=== PATIENT | female | born 1980 | race Caucasian/White ===

== ENCOUNTER 2023-06-14 20:13 | Emergency (ER) | payer OTHER, SELFPAY ==
--- NOTE | ~2023-06-14 | XR_ITS ---
EXAM: XR knee LT 3V DATE: 06/14/2023 20:52 HISTORY: accidental fall with knee pain . COMPARISON: None available. FINDINGS: Normal mineralization. Suggestion of cortical irregularity with adjacent linear lucency se en in the anterolateral aspect of the lateral condyle in the lateral view only. Also noted in the lat eral view is a small possible osteochondral fragment projecting over the medial femoral condyle. Curv ilinear bone fragment adjacent to the lateral tibial plateau as can be seen with lateral capsular lig ament injury (Segond fracture). No lytic or blastic lesion. Mild tricompartmental osteoarthritis. No erosion or periosteal change. Soft tissues within normal limits. Moderate volume joint effusion. IMPRESSION: Cortical irregularity over the lateral aspect of the lateral femoral condyle, probably artifactual, s ubtle nondisplaced fracture not excluded. Segond fracture. This injury is associated with ACL injury. Possible osteochondral lesion of the medial femoral condyle. Consider conservative management and timely MRI of the knee. Reviewed, dictated and finalized at location K. [facility] IMPRESSION: Cortical irregularity over the lateral aspect of the lateral femoral condyle, p robably artifactual, subtle nondisplaced fracture not excluded. Segond fracture. This injury is associated with ACL injury. Possible osteochondral lesion of the medial femoral condyle. Consider conservative management and timely MRI of the knee.
[2023-06-14 20:20] VITALS: BP 141/70; PULSE 97; RESP 20; TEMP 36.2; O2SAT 97
--- NOTE | 2023-06-14 20:26 | ED.FALL ---
HPI - Fall General Chief Complaint: Fall Stated Complaint: Left Lower Extremeity injury Source: patient Mode of arrival: ambulatory Limitations: no limitations History of Present Illness HPI Narrative: 43-year-old female with a history of ankylosing spondylitis with eye involvement, hypertension presents to the ER after an accidental fall at 4:30 p.m. with -- abrasions over the left rai -- left knee pain. Able to stand and bear weight. -- abrasion over the dorsal ring finger on the left side. No head injury. No loss of consciousness. No neck or back pain. MD complaint: fall Onset (ago): hour(s) ( 5 hours ago) Fall from: standing Fall witnessed: no Place fall occurred: home Loss of consciousness: none Prolonged down time: no Symptoms prior to fall: none Context: tripped/slipped Location of injury: other ( left knee and rai, left dorsal ring finger.) Location of injury - extremities: Left: knee Severity: moderate Quality: aching Associated symptoms (after fall): denies Related Data Home Medications Medication Instructions Recorded Confirmed aripiprazole 5 mg tablet (Abilify) 5 mg PO DAILY 06/14/23 06/14/23 diclofenac sodium 75 mg 75 mg PO BID 06/14/23 06/14/23 tablet,delayed release escitalopram oxalate 10 mg tablet 10 mg PO DAILY 06/14/23 06/14/23 (Lexapro) hydrochlorothiazide 25 mg tablet 25 mg PO DAILY 06/14/23 06/14/23 hydroxychloroquine 200 mg tablet 200 mg PO BID 06/14/23 06/14/23 (Plaquenil) lisinopril 20 mg tablet (Zestril) 20 mg PO DAILY 06/14/23 06/14/23 prednisone 10 mg PO DAILY 06/14/23 06/14/23 sulfasalazine 500 mg 500 mg PO BID 06/14/23 06/14/23 tablet,delayed release (Azulfidine EN-tabs) Allergies Allergy/AdvReac Type Severity Reaction Status Date / Time loratadine Allergy Mild Unknown Verified 06/14/23 20:26 benzonatate Allergy Hives Verified 06/14/23 20:26 PSEUDOEPHEDRINE SULFATE Allergy Mild Unknown Uncoded 06/14/23 20:26 Review of Systems Review of Systems: All systems reviewed & are unremarkable except as noted in HPI and below Constitutional: Constitutional: Reports as per HPI and Reports no additional constitutional complaints Eyes: Eyes: Reports as per HPI and Reports no additional eye complaints ENT: Reports system reviewed and no additional complaints, except as documented and Reports as per HPI Cardiovascular: Cardiovascular: Reports as per HPI and Reports no additional cardiovascular complaints Respiratory: Respiratory: Reports as per HPI and Reports no additional respiratory complaints Gastrointestinal: Gastrointestinal: Reports as per HPI and Reports no additional gastrointestinal complaints Genitourinary: Genitourinary: Reports no additional female genitourinary complaints and Reports as per HPI Musculoskeletal: Musculoskeletal: Reports no additional musculoskeletal complaints and Reports as per HPI Comments: Left knee pain Integumentary/Breasts: Skin/Breast: Reports system reviewed and no additional complaints, except as docu and Reports as per HPI Comments: abrasions over the left rai and left dorsal ring finger Neurologic: Reports system reviewed and no additional complaints, except as documented and Reports as per HPI Psychiatric: Psychiatric: Reports no additional psychiatric complaints and Reports as per HPI Endocrine: Endocrine: Reports no additional endocrine complaints and Reports as per HPI Hematologic/Lymphatic: Hematologic/Lymphatic: Reports no additional hematologic/lymphatic complaints and Reports as per HPI Allergic/Immunologic: Allergic/Immunologic: Reports no additional allergic/immunologic complaints and Reports as per HPI PMFSH Past Medical History Medical History Ankylosing spondylitis Narcolepsy Obesity Retinal tear Exam Const: General: no acute distress Nutritional Appearance: well nourished Orientation/consciousness: patient oriented x3 Fine
[2023-06-14 22:22] VITALS: BP 112/78; PULSE 96; RESP 18; TEMP 36.7; O2SAT 100
== END 2023-06-14 22:29 | disposition home or self-care (01) ==
PROVIDERS: Emergency Provider Internal Medicine Critical Care Medicine; PCP Registered Nurse
DX: S82.002A Unspecified fracture of left patella, initial encounter for closed fracture (principal); S83.512A Sprain of anterior cruciate ligament of left knee, initial encounter; I10 Essential (primary) hypertension; Z79.899 Other long term (current) drug therapy; W01.0XXA Fall on same level from slipping, tripping and stumbling without subsequent striking against object, initial encounter; Y92.009 Unspecified place in unspecified non-institutional (private) residence as the place of occurrence of the external cause
CPT/HCPCS: 73562; 99283

== ENCOUNTER 2023-06-24 07:45 | Outpatient (CLI) | payer OTHER, SELFPAY ==
--- NOTE | ~2023-06-24 | MR_ITS ---
EXAMINATION: MR knee LT wo con DATE: 06/24/2023 08:36 INDICATION: Left knee pain and swelling. TECHNIQUE: Magnetic resonance imaging (MRI) of the left knee was performed without intravenous contra st. Sequences included axial PD-weighted FS FSE, coronal PD-weighted FSE and PD-weighted FS FSE, sagi ttal PD-weighted FSE, and sagittal T2-weighted FS FSE. COMPARISON: Left knee radiographs 06/14/2023 FINDINGS: Medial compartment: Medial meniscus is normal. There is shallow partial-thickness cartilage loss of femoral condyle and t ibial condyle. There are tiny osteophytes. Lateral compartment: Lateral meniscus is normal. There is cartilage surface irregularity of tibial condyle and femoral con dyle. There are tiny osteophytes. Patellofemoral compartment: There is shallow partial-thickness cartilage loss of patellar medial facet and median ridge and carti sami surface irregularity of patellar lateral facet. There is partial-thickness cartilage loss of med ial and central trochlea, deep at the medial trochlea. There is mild subchondral edema-like marrow si gnal intensity in the medial trochlea. Osteophytes are noted. Ligaments and tendons: The anterior and posterior cruciate ligaments are normal. There are changes of prior sprains of media l collateral ligament and fibular collateral ligament characterized by increased signal intensity pro ximally. There is mild patellar tendinopathy. Fluid: There is a small knee joint effusion. There is a small Junior's cyst. There is moderate prepatellar an d superficial infrapatellar bursitis. Osseous/other: Red marrow expansion is noted. IMPRESSION: 1. Moderate chondrosis of patellofemoral compartment and mild chondrosis of medial and lateral compar tments. 2. Small knee joint effusion. 3. Small Junior's cyst. Reviewed, dictated and finalized at location E. [employer] IMPRESSION: 1. Moderate chondrosis of patellofemoral compartment and mild chondrosis of med ial and lateral compartments. 2. Small knee joint effusion. 3. Small Junior's cyst.
== END 2023-06-24 07:46 ==
LOC: MICIMG 07:46
PROVIDERS: PCP Nurse Practitioner Family; Visit Provider Nurse Practitioner Family
DX: S89.92XD Unspecified injury of left lower leg, subsequent encounter (principal); M25.562 Pain in left knee; M45.0 Ankylosing spondylitis of multiple sites in spine; R93.89 Abnormal findings on diagnostic imaging of other specified body structures; M22.2X2 Patellofemoral disorders, left knee; M25.462 Effusion, left knee; M71.22 Synovial cyst of popliteal space [Baker], left knee
CPT/HCPCS: 73721

== ENCOUNTER 2023-07-25 08:27 | Emergency (ER) | payer OTHER, SELFPAY ==
--- NOTE | ~2023-07-25 | XR_ITS ---
Right ankle Technique: AP, oblique, and lateral views were obtained. Clinical History: Pain Findings: There is an acute, oblique, nondisplaced fracture of the lateral malleolus, at and just pro ximal to the level ankle mortise. No other fracture or dislocation seen. Ankle mortise and other visu alized joint spaces are preserved. Soft tissues are otherwise unremarkable. Impression: Oblique, minimally displaced fracture of the lateral malleolus, as detailed above. Reviewed, dictated and finalized at location M. R/[employer] Impression: Oblique, minimally displaced fracture of the lateral malleolus, as detailed abo ve.
[2023-07-25 08:33] VITALS: BP 149/82; PULSE 85; RESP 16; TEMP 36.2; O2SAT 100
--- NOTE | 2023-07-25 09:46 | ED.LOWEXIN ---
HPI - Extremity Injury (Lower) General Chief Complaint: Extremity Injury, Lower Stated Complaint: foot and leg injury/fall Time Seen by Provider: 07/25/23 09:13 Source: patient Mode of arrival: wheelchair Limitations: no limitations History of Present Illness HPI Narrative: This is a 43 year old female that presents to the ER for right ankle injury sustained just prior to arrival. Reports she slipped on the ice and twisted her ankle. Reports pain and swelling. Reports decreased ROM due to pain. Denies numbness. Related Data Home Medications Medication Instructions Recorded Confirmed aripiprazole 5 mg tablet (Abilify) 5 mg PO DAILY 06/14/23 06/14/23 diclofenac sodium 75 mg 75 mg PO BID 06/14/23 06/14/23 tablet,delayed release escitalopram oxalate 10 mg tablet 10 mg PO DAILY 06/14/23 06/14/23 (Lexapro) hydrochlorothiazide 25 mg tablet 25 mg PO DAILY 06/14/23 06/14/23 hydroxychloroquine 200 mg tablet 200 mg PO BID 06/14/23 06/14/23 (Plaquenil) lisinopril 20 mg tablet (Zestril) 20 mg PO DAILY 06/14/23 06/14/23 prednisone 10 mg PO DAILY 06/14/23 06/14/23 sulfasalazine 500 mg 500 mg PO BID 06/14/23 06/14/23 tablet,delayed release (Azulfidine EN-tabs) Allergies Allergy/AdvReac Type Severity Reaction Status Date / Time loratadine Allergy Mild Unknown Verified 07/25/23 08:35 benzonatate Allergy Hives Verified 07/25/23 08:35 PSEUDOEPHEDRINE SULFATE Allergy Mild Unknown Uncoded 06/14/23 20:26 Review of Systems Review of Systems: CONSTITUTIONAL: Denies fever SKIN: Reports superficial abrasion MUSCULOSKELETAL: Reports joint pain, and myalgia. NEUROLOGIC: Denies numbness All systems reviewed & are unremarkable except as noted in HPI and below PMFSH Past Medical History Medical History Ankylosing spondylitis Narcolepsy Obesity Retinal tear Social History Social History (Updated 07/25/23 @ 09:52 by Sushma Vera PA-C) Smoking status: Never smoker Exam Narrative: GENERAL: Well-appearing, well-nourished, and in no acute distress. HEAD: Normocephalic, atraumatic. EYES: EOMI. CHEST: No respiratory distress. HEART: Regular rate EXTREMITIES: Mildly decreased ROM in the right ankle due to pain. Mild to moderate edema to the right ankle and foot with overlying superficial abrasion to the dorsal surface of the foot. Normal DP pulse. Normal sensation SKIN: Warm, dry, no rash. NEURO: No focal deficits. Alert and oriented x3. PSYCH: Normal mood and affect Course Course Emergency Course: Patient updated on her workup. Placed in a splint Vital Signs Vital signs: Vital Signs Temperature 97.2 F L 07/25/23 08:33 Pulse Rate 85 07/25/23 08:33 Respiratory Rate 16 07/25/23 08:33 Blood Pressure 149/82 H 07/25/23 08:33 Pulse Oximetry 100 07/25/23 08:33 Oxygen Delivery Room Air 07/25/23 08:33 Temperature 97.2 F L 07/25/23 08:33 Pulse Rate 85 07/25/23 08:33 Respiratory Rate 16 07/25/23 08:33 Blood Pressure 149/82 H 07/25/23 08:33 Pulse Oximetry 100 07/25/23 08:33 Oxygen Delivery Room Air 07/25/23 08:33 Procedures Orthopedic Splinting/Casting Injury #1: Splinting/Casting Date: 07/25/23 Splinting/Casting Time: 10:55 Side: right Lower Extremity Injury Location: ankle Splint: customized in ED OCL: short leg Pre-Procedure Neuro Vascular Exam: normal Post-Procedure Neuro Vascular Exam: normal Other Orthopedic Equipment: crutches MDM - Extremity Injury (Lower) MDM Narrative Medical decision making narrative: Patient presents to the emergency department for right ankle pain after an injury this morning. She is neurovascularly intact. Right ankle x-ray shows an oblique fracture of the distal fibula. Patient has a superficial abrasion which was cleansed and covered with a bandage. She was placed in a splint. Will be given follow-up with Orthopedi
[2023-07-25] MEDS: HYDROcodone/acetaminophen (*CRX) 5-325 MG TABLET 1 TAB PO (10:25)
== END 2023-07-25 11:01 | disposition home or self-care (01) ==
PROVIDERS: Emergency Provider Physician Assistant; PCP Registered Nurse
DX: S82.61XA Displaced fracture of lateral malleolus of right fibula, initial encounter for closed fracture (principal); E66.9 Obesity, unspecified; Z68.42 Body mass index [BMI] 45.0-49.9, adult; W00.0XXA Fall on same level due to ice and snow, initial encounter
CPT/HCPCS: 29515; 73610; 99284; A9270